=== PATIENT | male | born 1980 | race Caucasian/White ===

== ENCOUNTER 2016-11-07 07:03 | Emergency (ER) | payer BC ==
[~2016-11-07] VITALS: Ht 182.9 cm; Wt 80.8 kg
[2016-11-07 07:07] VITALS: TEMP 36.8; Ht 182.9 cm; Wt 80.8 kg
--- NOTE | 2016-11-07 07:42 | DIAGNOSTIC IMAGING REPORT ---
RIGHT FOURTH FINGER 3 VIEWS HISTORY: Right fourth finger pain. COMPARISON: None. FINDINGS: There is a nondisplaced spiral fracture seen within the proximal to mid proximal phalanx of the right fourth finger. There is associated soft tissue swelling. The fracture extends to the MCP joint. No dislocation. No radiopaque foreign bodies. IMPRESSION: Nondisplaced spiral fracture within the proximal phalanx of the right fourth finger. Electronically signed by: Uvaldo Chase M.D. 11/07/2016 7:40 AM Dictated Date/Time: 11/07/2016 7:39 AM
--- NOTE | 2016-11-07 07:56 | EMERGENCY ROOM VISIT NOTE ---
History First contact with patient: 07:11 Chief Complaint: FINGER PAIN Stated Complaint: BROKEN FINGER ON RIGHT HAND History of Present Illness The patient is a 36 year old male who presents to the Emergency Room with complaints of a right fourth finger injury while playing basketball this morning. He reports jamming the finger when someone attempted to steal the ball. The patient reports pain rated a 6 out of 10. He denies any pain extending into the adjacent fingers or hand. Denies paresthesias or numbness of the finger. The patient is [id number]. Review of Systems 10 system review was performed and was negative except for pertinent positives and negatives as indicated in history of present illness Past Medical/Surgical History Medical Problems: (1) No significant past medical history Surgical Problems: (1) Right fifth finger surgery Family History No significant family history Social History Smoking Status: Never Smoker Alcohol Use: occasionally Marital Status: Housing Status: lives with family Occupation Status: employed Current/Historical Medications No Active Prescriptions or Reported Meds Allergies Coded Allergies: No Known Allergies (Unverified , 11/07/16) Physical Exam Vital Signs Date Time Temp Pulse Resp B/P Pulse Ox O2 Delivery O2 Flow Rate FiO2 11/07/16 07:07 36.8 74 20 102/70 95 Room Air Physical Exam CONSTITUTIONAL: Healthy and well nourished. Alert and oriented X 3 with positive affect. She does not appear in any acute distress. HEENT: Normocephalic, atraumatic. Pupils equal, round and reactive. NECK: Full active range of motion without discomfort. MUSCULOSKELETAL: Examination shows an ulnar soft deformity of the fourth finger. He is tender over the proximal phalanx. No tenderness to palpation of the MCP or fourth metacarpal. Capillary refill of the finger is less than 2 seconds. INTEGUMENTARY: No rash or other significant dermatologic conditions noted. NEUROLOGIC: Right fourth fingertip is sensory intact. Medical Decision & Procedures ER Provider Diagnostic Interpretation: My interpretation of right fourth finger x-rays shows a spiral fracture of the proximal phalanx. No dislocations noted. Radiologist report is as follows: RIGHT FOURTH FINGER 3 VIEWS HISTORY: Right fourth finger pain. COMPARISON: None. FINDINGS: There is a nondisplaced spiral fracture seen within the proximal to mid proximal phalanx of the right fourth finger. There is associated soft tissue swelling. The fracture extends to the MCP joint. No dislocation. No radiopaque foreign bodies. IMPRESSION: Nondisplaced spiral fracture within the proximal phalanx of the right fourth finger. ED Course Patient history and physical exam were performed. Nurse's notes were reviewed. Vital signs were reviewed and normal. The patient refused any analgesics on initial exam. X-rays of the right fourth finger shows a nondisplaced spiral fracture of the proximal phalanx. The patient's third and fourth fingers were splinted and ari taped. The patient was encouraged to intermittently apply ice and elevate the hand for swelling. Ibuprofen or Tylenol as needed for pain. The patient refused any prescription analgesics. As provided contact information for [facility] for further follow-up. The patient was happy with plan of care, voiced understanding of all discharge instructions, and denied any significant pain at the time of discharge. Impression Primary Impression: Fracture of phalanx of right ring finger Departure Information Prescriptions No Active Prescriptions or Reported Meds Referrals No Doctor, Assigned (PCP) Patient Instructions [facility] Problem Qualifiers Primary Impression: Fracture of phalanx of right ring finger Encounter type: initial encounter Fracture type: closed Phalanx: proximal Fracture alignment: nondisplaced Qualified Codes: S62.644A - Nondisplaced fracture of proximal phalanx of right ring finger, initial encounter for closed fracture
[2016-11-07 08:18] VITALS: BP 114/78; PULSE 73; O2SAT 98
== END 2016-11-07 08:22 | disposition home or self-care (01) ==
LOC: C.EDB 07:04
DX: S62.644A Nondisplaced fracture of proximal phalanx of right ring finger, initial encounter for closed fracture (principal); W21.9XXA Striking against or struck by unspecified sports equipment, initial encounter